=== PATIENT | male | born 1985 | race Caucasian/White ===

== ENCOUNTER 2017-01-08 23:59 | Emergency (ER) | payer BC ==
--- NOTE | ~2017-01-08 | CR230 ---
[facility]. [facility] A Service of [facility] & [facility] RADIOLOGY TEXT RESULTS PATIENT: REYNA GROSS LOCATION: SED : [birth year] UNIT #: [id number] AGE: [address]: REYNA KILLIAN SEX: M ORDER DR: [id number] [place] [address] [id number] E MR#: [id number] Acc #: [id number] NAME: REYNA GROSS : 1985 SEX: M STUDY DATE/TIME: 01/08/2017 23:58 UNIT: SED ROOM: STUDY DESCRIPTION: CR Shoulder Min 2 View Rt Attending Physician: Reyna Killian Aprn Ordering Physician: Physician Non-Staff Primary Care Physician: Christine Moralez A.P.R.N. MEDICAL IMAGING REPORT This report is preliminary unless electronic signature is present. EXAM Right shoulder 01/09/2017 at 00: 06 hours. INDICATIONS Shoulder pain for 1 month increasing over time. No trauma. COMPARISON 3 views of the right shoulder are compared with 07/16/2007. FINDINGS No fracture or dislocation is seen. There is no AC joint separation. IMPRESSION Normal right shoulder. Dictated by... Jevon Yousif Jr., M.D. THIS IS AN ELECTRONICALLY VERIFIED REPORT Jevon Yousif Jr., M.D. at 01/09/2017 9:59 PM RLK/panfilo TD: 01/09/2017 10:31 JOB #: [id number] MEDICAL IMAGING REPORT
[~2017-01-08 23:59] MED LIST: ALBUTEROL17 GM INH; AMOXICILLIN PO; AMOXICILLIN500 M1 PO; AMOXICILLIN875 MG PO; ASPIRIN325 M1 PO; ASPIRIN81 M2 PO; BACTRIM DS TABL1 TA1 PO; DECADRON PO; DICLOFENAC; EFFIENT10 MG PO; FAMOTIDINE PO; FENOFIBRATE40 MG PO; FIORICET1 TAB PO; FLOMAX0.4 M1 PO; GUAIFENESIN400 MG PO; IBUPROFEN800 MG PO; LIORESAL10 MG PO; LIPITOR80 MG PO; LISINOPRIL2.5 MG PO; LISINOPRIL20 MG PO; LORTAB 10-5001 EACH PO; MAGIC MOUTH WASH PO; MEDROL4 MG/DOSE- PO; METOPROLOL TART25 MG PO; MOBIC15 MG PO; NORCO 5/325 TAB1 TAB PO; NORVASC PO; NORVASC2.5 MG PO; NUVIGIL150 MG PO; OXYCODONE HCL15 MG PO; PERCOCET 10/3251 TAB PO; PHENERGAN PO; PHENERGAN25 MG PO; PREDNISONE PO; PRISTIQ50 MG PO; PROTONIX PO; PSEUDOEPHEDRINE30 M1 PO; TRICOR145 MG PO; VIIBRYD40 MG PO; VITAMIN B12-FO1 EACH PO; VITAMIN D31000 UNI1 PO; XANAX1 MG PO; ZANAFLEX4 M1 PO; ZITHROMAX PO; ZOFRAN ODT4 MG PO; ZOFRAN PO
[2017-01-26] MEDS ORDERED: METOPROLOL TAR25 MG PO (15:05)
[2017-01-26] MEDS ORDERED: FLEXERIL10 MG PO (15:06)
[2017-01-26] MEDS ORDERED: OXYCODONE HCL15 MG PO (15:06)
== END 2017-01-09 01:20 | disposition home or self-care (01) ==
LOC: SED 23:59
DX: S46.911A Strain of unspecified muscle, fascia and tendon at shoulder and upper arm level, right arm, initial encounter (principal); F17.210 Nicotine dependence, cigarettes, uncomplicated; I10 Essential (primary) hypertension; Z79.82 Long term (current) use of aspirin; Z79.899 Other long term (current) drug therapy; X58.XXXA Exposure to other specified factors, initial encounter
CPT/HCPCS: 73030; 96372; 99283; J1885

== ENCOUNTER 2017-01-26 15:30 | Emergency (ER) | payer BC ==
[~2017-01-26 15:30] MED LIST changes: +FLEXERIL10 MG PO; +METOPROLOL TAR25 MG PO
== END 2017-01-26 16:04 | disposition home or self-care (01) ==
LOC: SED 15:30
DX: S29.012A Strain of muscle and tendon of back wall of thorax, initial encounter (principal); F17.210 Nicotine dependence, cigarettes, uncomplicated; I21.3 ST elevation (STEMI) myocardial infarction of unspecified site; F41.9 Anxiety disorder, unspecified; Z79.899 Other long term (current) drug therapy; Z79.82 Long term (current) use of aspirin; X58.XXXA Exposure to other specified factors, initial encounter
CPT/HCPCS: 99282

== ENCOUNTER 2017-01-27 06:48 | Emergency (ER) | payer BC ==
--- NOTE | ~2017-01-27 | CR243 ---
[facility] A Service of [facility] RADIOLOGY TEXT RESULTS PATIENT: REYNA GROSS LOCATION: SED : 83 UNIT #: [id number] AGE: [address]: Jevon Zimmerman MD SEX: M ORDER DR: [id number] [place] [address] [id number] E MR#: [id number] Acc #: [id number] NAME: REYNA GROSS : 1985 SEX: M STUDY DATE/TIME: 01/27/2017 6:49 UNIT: SED ROOM: STUDY DESCRIPTION: CR Thoracic Spine 3 Views Attending Physician: Jevon Zmimerman M.D. Ordering Physician: Jevon Zimmerman M.D. Primary Care Physician: Christine Moralez A.P.R.N. MEDICAL IMAGING REPORT This report is preliminary unless electronic signature is present. EXAM Thoracic spine, 3 views. DATE OF EXAM 01/27/2017 COMPARISON MRI of the thoracic spine dated September 17, 2013. INDICATION 31-year-old male with upper back pain for 2 weeks. History of multiple herniated thoracic discs. FINDINGS Minimal multilevel anterior osteophyte formation of the thoracic vertebral bodies. The upper most thoracic spine approximately T1-T2 is not well evaluated due to overlapping structures on the lateral and swimmer's view. These vertebral bodies appear normal on frontal view. No evidence of acute fracture. No significant disc height loss. IMPRESSION The upper thoracic vertebral bodies at approximately T1 through T2 are not well evaluated on lateral view, but appear intact on frontal view with normal height. There is no evidence of acute fracture or dislocation of the thoracic spine. No osseous destruction. Disc heights appear maintained. Dictated by... Donovan Rodrigues M.D. THIS IS AN ELECTRONICALLY VERIFIED REPORT [facility] A Service [facility] RADIOLOGY TEXT RESULTS PATIENT: REYNA GROSS LOCATION: SED : 83 UNIT #: [id number] AGE: [address]: Jevon Zimmerman MD SEX: M ORDER DR: Donovan Rodrigues M.D. at 01/30/2017 9:06 AM RASHEED/scott TD: 01/27/2017 17:00 JOB #: [id number] MEDICAL IMAGING REPORT Page 1 of 1
== END 2017-01-27 07:48 | disposition home or self-care (01) ==
LOC: SED 06:48
DX: S29.012A Strain of muscle and tendon of back wall of thorax, initial encounter (principal); Z79.899 Other long term (current) drug therapy; Z79.82 Long term (current) use of aspirin; Y92.9 Unspecified place or not applicable; X58.XXXA Exposure to other specified factors, initial encounter
CPT/HCPCS: 72072; 96372; 99283; J1885